=== PATIENT | female | born 1955 | race Caucasian/White ===

== ENCOUNTER 2021-06-16 12:51 | Emergency (ER) | payer OTHER ==
[2021-06-16] VITALS (8 sets, daily range): BP systolic 101–141; BP diastolic 52–79
[~2021-06-16] VITALS: Ht 154.9 cm; Wt 89.5 kg
[2021-06-16 16:09] LABS: CALCIUM, TOTAL 8.6 mg/dL (8.8-10.5); CREATININE 1.02 mg/dL (0.60-1.30); HEMATOCRIT 24.5 % (36-46); HEMOGLOBIN 7.2 g/dL (12.0-16.0); MEAN CORPUSCULAR HEMOGLOBIN 22.7 pg (26.0-34.0); MEAN CORPUSCULAR HGB CONC 29.3 G/dL (31.0-37.0); MEAN CORPUSCULAR VOLUME 78 fL (80-100); PLATELET COUNT (AUTO) 91 K/uL (150-450); POTASSIUM 4.1 mmol/L (3.5-5.1); RED BLOOD CELL COUNT(AUTO) 3.15 MIL/uL (4.00-5.20); RED CELL DISTRIBUTION WIDTH 20.8 % (11.5-14.5)
[2021-06-16 16:13] LABS: BILIRUBIN,TOTAL 0.5 mg/dL (0.1-1.0); TOTAL PROTEIN, SERUM 7.4 g/dL (6.4-8.2)
[2021-06-16 16:32] LABS: PATHOLOGY REVIEW, DIFF YES
[2021-06-16] MEDS ORDERED: ACETAMINOPHEN 500 MG TABLET PO ONE (18:15)
[2021-06-16] MEDS ORDERED: DiphenhydrAMINE HCL 25 MG CAPSULE PO ONE (18:15)
[2021-06-18 12:29] LABS: SEGMENTED NEUTROPHILS % 41 % (40-70)
[2021-06-18 12:30] LABS: BAND NEUTROPHILS % (MANUAL) 8 % (0-5); BASOPHILS % (MANUAL) 0 % (0-2); BLASTS, MANUAL % 2 (0-0); EOSINOPHILS % (MANUAL) 0 % (1-6); LYMPHOCYTES % (MANUAL) 19 % (22-44); METAMYELOCYTES % 4 % (0-0); MONOCYTES % (MANUAL) 21 % (2-9); MYELOCYTES % 5 % (0-0); PROMYELOCYTES % 0 (0-0); REACTIVE LYMPHOCYTES 0 % (0-0)
[2021-06-18 12:31] LABS: OTHER CELLS,MANUAL % 0 (0-0)
== END 2021-06-16 20:07 | disposition home or self-care (01) ==
LOC: EMS 12:51
DX: D64.9 Anemia, unspecified (principal); D69.6 Thrombocytopenia, unspecified; R53.1 Weakness; J45.909 Unspecified asthma, uncomplicated; I10 Essential (primary) hypertension; Z90.89 Acquired absence of other organs
CPT/HCPCS: 36415; 36430; 80053; 84484; 85025; 86850; 86900; 86901; 86923; 93005; 99285; P9016

== ENCOUNTER 2021-07-01 11:01 | Emergency (ER) | payer OTHER ==
[~2021-07-01] VITALS: Ht 160 cm; Wt 90.5 kg
[2021-07-01] VITALS (7 sets, daily range): BP systolic 110–142; BP diastolic 49–63
[2021-07-01 13:47] LABS: HEMATOCRIT 26.8 % (36-46); MEAN CORPUSCULAR HEMOGLOBIN 23.1 pg (26.0-34.0); MEAN CORPUSCULAR HGB CONC 29.7 G/dL (31.0-37.0); MEAN CORPUSCULAR VOLUME 78 fL (80-100); PLATELET COUNT (AUTO) 91 K/uL (150-450); RED BLOOD CELL COUNT(AUTO) 3.45 MIL/uL (4.00-5.20); RED CELL DISTRIBUTION WIDTH 20.1 % (11.5-14.5)
[2021-07-01 13:54] LABS: ANION GAP 8 mmol/L (8-16); CALCIUM, TOTAL 8.5 mg/dL (8.8-10.5); CARBON DIOXIDE 28 mmol/L (22-29); CHLORIDE 99 mmol/L (98-107); CREATININE 0.74 mg/dL (0.60-1.30); GLOMERULAR FILTR. RATE CALC > 60 mL/min (>60); GLUCOSE,RANDOM 102 mg/dL (70-110); SODIUM SERUM 135 mmol/L (136-145); UREA NITROGEN, BLOOD 19 mg/dL (7-18)
[2021-07-01 14:00] LABS: ALANINE AMINOTRANSFERASE 22 U/L (12-78); ALBUMIN 3.2 g/dL (3.4-5.0); ALKALINE PHOSPHATASE 57 U/L (46-116); ASPARTATE AMINOTRANSFERASE 16 U/L (15-37); BILIRUBIN,TOTAL 0.5 mg/dL (0.1-1.0); TOTAL PROTEIN, SERUM 7.6 g/dL (6.4-8.2)
[2021-07-01 14:02] LABS: LACTIC ACID 0.9 mmol/L (0.4-2.0)
[2021-07-01 14:12] LABS: BAND NEUTROPHILS % (MANUAL) 5 % (0-5); BASOPHILS % (MANUAL) 2 % (0-2); BLASTS, MANUAL % 1 (0-0); CORRECTED WHITE BLOOD COUNT 7.9 K/uL (4.5-11.0); LYMPHOCYTES % (MANUAL) 24 % (22-44); METAMYELOCYTES % 7 % (0-0); MONOCYTES % (MANUAL) 10 % (2-9); MYELOCYTES % 4 % (0-0); SEGMENTED NEUTROPHILS % 47 % (40-70)
[2021-07-01 14:24] LABS: INR 1.2 (0.9-1.1)
== END 2021-07-01 18:47 | disposition home or self-care (01) ==
LOC: EMS 11:05
DX: D64.9 Anemia, unspecified (principal); I10 Essential (primary) hypertension; J45.909 Unspecified asthma, uncomplicated
CPT/HCPCS: 36415; 36430; 80053; 83605; 84484; 85025; 85610; 85730; 86850; 86900; 86901; 86923; 93005; 99285; P9016

== ENCOUNTER 2021-07-11 11:08 | Emergency (ER) | payer OTHER ==
[2021-07-11] VITALS (12 sets, daily range): BP systolic 118–159; BP diastolic 52–83
[~2021-07-11] VITALS: Ht 167.6 cm; Wt 89.5 kg
[2021-07-11] MEDS ORDERED: ATEN-72 PO (11:26)
[2021-07-11 12:31] LABS: BASOPHILS % (AUTO) 0.5 % (0.0-2.0); EOSINOPHILS % (AUTO) 0.1 % (1.0-6.0); HEMATOCRIT 23.8 % (36-46); HEMOGLOBIN 7.3 g/dL (12.0-16.0); LYMPHOCYTES # (AUTO) 4.2 K/uL (1.0-4.8); LYMPHOCYTES % (AUTO) 55.7 % (22.0-44.0); MEAN CORPUSCULAR HEMOGLOBIN 23.7 pg (26.0-34.0); MEAN CORPUSCULAR HGB CONC 30.9 G/dL (31.0-37.0); MEAN CORPUSCULAR VOLUME 77 fL (80-100); MONOCYTES # (AUTO) 0.6 K/uL (0.1-1.0); MONOCYTES % (AUTO) 7.9 % (2.0-9.0); NEUTROPHILS # (AUTO) 2.7 K/uL (1.8-7.7); NEUTROPHILS % (AUTO) 35.8 % (40.0-70.0); PLATELET COUNT (AUTO) 49 K/uL (150-450); RED CELL DISTRIBUTION WIDTH 20.7 % (11.5-14.5)
[2021-07-11 12:44] LABS: PLATELET MORPHOLOGY COMMENT LARGE PLTS PRESENT
[2021-07-11] MEDS ORDERED: ACETAMINOPHEN 325 MG TABLET ONE (16:57)
== END 2021-07-11 17:56 | disposition home or self-care (01) ==
LOC: EMS 11:08
DX: D64.9 Anemia, unspecified (principal); D69.6 Thrombocytopenia, unspecified; R53.1 Weakness; J45.909 Unspecified asthma, uncomplicated; I10 Essential (primary) hypertension; C92.10 Chronic myeloid leukemia, BCR/ABL-positive, not having achieved remission; Z90.49 Acquired absence of other specified parts of digestive tract; Z90.710 Acquired absence of both cervix and uterus
CPT/HCPCS: 36415; 36430; 85025; 86850; 86900; 86901; 86923; 99285; P9016

== ENCOUNTER 2021-08-14 09:57 | Emergency (ER) | payer OTHER ==
[2021-08-14] VITALS (8 sets, daily range): BP systolic 105–136; BP diastolic 47–70
[~2021-08-14] VITALS: Ht 121.9 cm; Wt 90.9 kg
[~2021-08-14 09:57] MED LIST: ATEN-72 PO
[2021-08-14 10:34] LABS: HEMATOCRIT 23.6 % (36-46); HEMOGLOBIN 7.3 g/dL (12.0-16.0); MEAN CORPUSCULAR HEMOGLOBIN 24.3 pg (26.0-34.0); MEAN CORPUSCULAR HGB CONC 31.1 G/dL (31.0-37.0); MEAN CORPUSCULAR VOLUME 78 fL (80-100); RED BLOOD CELL COUNT(AUTO) 3.01 MIL/uL (4.00-5.20); RED CELL DISTRIBUTION WIDTH 21.9 % (11.5-14.5)
[2021-08-14 10:35] LABS: PLATELET COUNT (AUTO) 18 K/uL (150-450)
[2021-08-14 10:36] LABS: ANION GAP 7 mmol/L (8-16); CALCIUM, TOTAL 8.4 mg/dL (8.8-10.5); CARBON DIOXIDE 27 mmol/L (22-29); CHLORIDE 101 mmol/L (98-107); CREATININE 0.79 mg/dL (0.60-1.30); GLOMERULAR FILTR. RATE CALC > 60 mL/min (>60); GLUCOSE,RANDOM 97 mg/dL (70-110); POTASSIUM 4.7 mmol/L (3.5-5.1); SODIUM SERUM 135 mmol/L (136-145); UREA NITROGEN, BLOOD 9 mg/dL (7-18)
[2021-08-14 10:42] LABS: ALANINE AMINOTRANSFERASE 15 U/L (12-78); ALBUMIN 3.6 g/dL (3.4-5.0); ALKALINE PHOSPHATASE 53 U/L (46-116); ASPARTATE AMINOTRANSFERASE 8 U/L (15-37); BILIRUBIN,TOTAL 0.7 mg/dL (0.1-1.0); TOTAL PROTEIN, SERUM 7.6 g/dL (6.4-8.2)
[2021-08-14 12:20] LABS: BAND NEUTROPHILS % (MANUAL) 2 % (0-5); CORRECTED WHITE BLOOD COUNT 2.1 K/uL (4.5-11.0); LYMPHOCYTES % (MANUAL) 53 % (22-44); MONOCYTES % (MANUAL) 3 % (2-9); SEGMENTED NEUTROPHILS % 42 % (40-70)
[2021-08-14 12:21] LABS: BUFFY COAT SMEAR PREP YES (NOT DONE)
[2021-08-14 14:43] LABS: HEMATOCRIT 24.7 % (36-46); HEMOGLOBIN 7.9 g/dL (12.0-16.0)
== END 2021-08-14 15:42 | disposition home or self-care (01) ==
LOC: EMS 10:00
DX: D64.9 Anemia, unspecified (principal); C95.90 Leukemia, unspecified not having achieved remission; I10 Essential (primary) hypertension
CPT/HCPCS: 36415; 36430; 80053; 85009; 85014; 85018; 85025; 86850; 86900; 86901; 86923; 99285; P9016

== ENCOUNTER 2021-08-22 12:32 | Emergency (ER) | payer OTHER ==
[~2021-08-22] VITALS: Ht 154.9 cm; Wt 86.4 kg
[2021-08-22] MEDS ORDERED: ALBU8HFA IH (12:38)
[2021-08-22 13:29] LABS: ANION GAP 8 mmol/L (8-16); CALCIUM, TOTAL 8.1 mg/dL (8.8-10.5); CARBON DIOXIDE 24 mmol/L (22-29); CHLORIDE 101 mmol/L (98-107); CREATININE 0.71 mg/dL (0.60-1.30); GLOMERULAR FILTR. RATE CALC > 60 mL/min (>60); GLUCOSE,RANDOM 105 mg/dL (70-110); POTASSIUM 4.9 mmol/L (3.5-5.1); SODIUM SERUM 133 mmol/L (136-145); UREA NITROGEN, BLOOD 14 mg/dL (7-18)
[2021-08-22 13:36] LABS: ALANINE AMINOTRANSFERASE 13 U/L (12-78); ALBUMIN 3.4 g/dL (3.4-5.0); ALKALINE PHOSPHATASE 50 U/L (46-116); ASPARTATE AMINOTRANSFERASE 15 U/L (15-37); BILIRUBIN,TOTAL 0.9 mg/dL (0.1-1.0); TOTAL PROTEIN, SERUM 7.3 g/dL (6.4-8.2)
[2021-08-22 13:58] LABS: HEMATOCRIT 21.9 % (36-46); MEAN CORPUSCULAR HEMOGLOBIN 24.7 pg (26.0-34.0); MEAN CORPUSCULAR HGB CONC 31.6 G/dL (31.0-37.0); MEAN CORPUSCULAR VOLUME 78 fL (80-100); RED BLOOD CELL COUNT(AUTO) 2.79 MIL/uL (4.00-5.20); RED CELL DISTRIBUTION WIDTH 20.9 % (11.5-14.5)
[2021-08-22 14:10] LABS: HEMOGLOBIN 6.9 g/dL (12.0-16.0)
[2021-08-22 14:11] LABS: PLATELET COUNT (AUTO) 17 K/uL (150-450)
[2021-08-22] MEDS ORDERED: FILGRASTIM 480 MCG/0.8 ML SYRINGE SQ ONE (14:45)
[2021-08-22 14:49] LABS: BAND NEUTROPHILS % (MANUAL) 3 % (0-5); LYMPHOCYTES % (MANUAL) 63 % (22-44); MONOCYTES % (MANUAL) 4 % (2-9); SEGMENTED NEUTROPHILS % 30 % (40-70)
[2021-08-22 14:51] LABS: PATHOLOGY REVIEW, DIFF YES
[2021-08-22 16:40] VITALS: BP 110/61
[2021-08-22 16:55] VITALS: BP 97/52
[2021-08-22 17:25] VITALS: BP 106/57
[2021-08-22 18:25] VITALS: BP 113/53
[2021-08-22 20:29] VITALS: BP 120/60
[2021-08-23] MEDS ORDERED: LOSA1TAB37 PO (13:49)
[2021-08-23] MEDS ORDERED: ALLO100T PO (13:49)
[2021-08-23] MEDS ORDERED: ATEN-72 PO (13:49)
[2021-08-23] MEDS ORDERED: BUDE10.22 IH (13:49)
[2021-08-23] MEDS ORDERED: FERR325T23 PO (13:49)
== END 2021-08-22 20:31 | disposition home or self-care (01) ==
LOC: EMS 12:32
DX: D64.9 Anemia, unspecified (principal); C95.90 Leukemia, unspecified not having achieved remission; D61.818 Other pancytopenia; I10 Essential (primary) hypertension; J45.909 Unspecified asthma, uncomplicated; Z90.49 Acquired absence of other specified parts of digestive tract
CPT/HCPCS: 36415; 36430; 80053; 85025; 86850; 86900; 86901; 86923; 96372; 99285; P9016; Q9967

== ENCOUNTER 2021-08-23 12:52 | Emergency (ER) | payer OTHER ==
[~2021-08-23] VITALS: Ht 162.6 cm; Wt 86.4 kg
[~2021-08-23 12:52] MED LIST changes: +ALBU8HFA IH; -ATEN-72 PO
[2021-08-23 13:02] VITALS: BP 113/48
[2021-08-23] MEDS ORDERED: FILGRASTIM 480 MCG/0.8 ML SYRINGE SQ ONE (13:45)
[2021-08-23] MEDS ORDERED: BUDE10.22 IH (13:49)
[2021-08-23] MEDS ORDERED: ATEN-72 PO (13:49)
[2021-08-23] MEDS ORDERED: FERR325T23 PO (13:49)
[2021-08-23] MEDS ORDERED: ALLO100T PO (13:49)
[2021-08-23] MEDS ORDERED: LOSA1TAB37 PO (13:49)
[2021-08-23 13:59] LABS: EOSINOPHILS % (AUTO) 0.3 % (1.0-6.0); HEMATOCRIT 24.5 % (36-46); HEMOGLOBIN 7.9 g/dL (12.0-16.0); LYMPHOCYTES # (AUTO) 0.5 K/uL (1.0-4.8); LYMPHOCYTES % (AUTO) 20.3 % (22.0-44.0); MEAN CORPUSCULAR HEMOGLOBIN 26.2 pg (26.0-34.0); MEAN CORPUSCULAR HGB CONC 32.3 G/dL (31.0-37.0); MEAN CORPUSCULAR VOLUME 81 fL (80-100); MONOCYTES % (AUTO) 1.5 % (2.0-9.0); NEUTROPHILS # (AUTO) 1.9 K/uL (1.8-7.7); NEUTROPHILS % (AUTO) 76.9 % (40.0-70.0); RED BLOOD CELL COUNT(AUTO) 3.02 MIL/uL (4.00-5.20); RED CELL DISTRIBUTION WIDTH 21.3 % (11.5-14.5)
[2021-08-23 14:08] LABS: ANION GAP 7 mmol/L (8-16); CARBON DIOXIDE 26 mmol/L (22-29); CHLORIDE 101 mmol/L (98-107); CREATININE 0.83 mg/dL (0.60-1.30); GLOMERULAR FILTR. RATE CALC > 60 mL/min (>60); GLUCOSE,RANDOM 111 mg/dL (70-110); POTASSIUM 4.6 mmol/L (3.5-5.1); SODIUM SERUM 134 mmol/L (136-145); UREA NITROGEN, BLOOD 18 mg/dL (7-18)
[2021-08-23 14:14] LABS: ALANINE AMINOTRANSFERASE 12 U/L (12-78); ALBUMIN 3.3 g/dL (3.4-5.0); ALKALINE PHOSPHATASE 51 U/L (46-116); ASPARTATE AMINOTRANSFERASE 7 U/L (15-37); BILIRUBIN,TOTAL 1.2 mg/dL (0.1-1.0); TOTAL PROTEIN, SERUM 7.1 g/dL (6.4-8.2)
[2021-08-23 14:19] LABS: PLATELET COUNT (AUTO) 15 K/uL (150-450)
== END 2021-08-23 15:38 | disposition home or self-care (01) ==
LOC: EMS 12:54
DX: D61.818 Other pancytopenia (principal); C95.90 Leukemia, unspecified not having achieved remission; D64.9 Anemia, unspecified; J45.909 Unspecified asthma, uncomplicated; I10 Essential (primary) hypertension; Z90.49 Acquired absence of other specified parts of digestive tract
CPT/HCPCS: 36415; 80053; 85025; 99283; Q9967

== ENCOUNTER 2021-08-24 13:32 | Emergency (ER) | payer OTHER ==
[~2021-08-24] VITALS: Ht 162.6 cm; Wt 86.4 kg
[~2021-08-24 13:32] MED LIST changes: +ALLO100T PO; +ATEN-72 PO; +BUDE10.22 IH; +FERR325T23 PO; +LOSA1TAB37 PO
[2021-08-24 13:33] VITALS: BP 124/41
[2021-08-24] MEDS ORDERED: FILGRASTIM 480 MCG/0.8 ML SYRINGE SQ ONE (15:15)
== END 2021-08-24 15:40 | disposition home or self-care (01) ==
LOC: EMS 13:33
DX: D61.818 Other pancytopenia (principal); J45.909 Unspecified asthma, uncomplicated; I10 Essential (primary) hypertension; C95.90 Leukemia, unspecified not having achieved remission; D46.9 Myelodysplastic syndrome, unspecified; Z90.49 Acquired absence of other specified parts of digestive tract; Z98.890 Other specified postprocedural states
CPT/HCPCS: 99283; Q9967